=== PATIENT | male | born 1990 | race African-American/Black ===

== ENCOUNTER 2017-07-08 09:04 | Emergency (ER) | payer OTHER ==
[2017-07-08] MEDS ORDERED: Belladonna-Phenobarbital PO STA (09:46)
[2017-07-08] MEDS ORDERED: Belladonna-Phenobarbital ONE (09:53)
--- NOTE | 2017-07-08 10:12 | RAD ---
Abdomen two views History: Abdominal pain. Comparison: None available. Findings: Moderate fecal retention in the colon. Air seen within non distended loops of small bowel. Impression: Moderate fecal retention in the colon.
--- NOTE | 2017-07-08 10:21 | C.PDOC ---
History Of Present Illness 27 year old male, with no significant PMHx, presents to the ED for evaluation of abdominal pain which began around 5 days ago. Patient states pain is to his mid-right to left abdominal region, following the outline of his colon. Patient states the pain is cramping, intermittent and 6-8/10 in severity. He notes experiencing similar pain when he was a child, but had not experienced it in years. He also reports liquid stools. Patient denies fever, chills, nausea, vomiting, straining, or blood in stool. Time Seen by Provider: 07/08/17 09:15 Chief Complaint (Nursing): Abdominal Pain History Per: Patient History/Exam Limitations: no limitations Onset/Duration Of Symptoms: Days (5), Intermittent Episodes Current Symptoms Are (Timing): Still Present Pain Scale Rating Of: 6 Location Of Pain/Discomfort: Other (mid-right to left abdomen ) Associated Symptoms: Other (liquid stools ). denies: Fever, Chills, Nausea, Vomiting Additional History Per: Patient Past Medical History Reviewed: Historical Data, Nursing Documentation, Vital Signs Vital Signs: Last Vital Signs Temp 98.7 F 07/08/17 10:28 Pulse 70 07/08/17 10:28 Resp 18 07/08/17 10:28 BP 124/75 07/08/17 10:28 Pulse Ox 99 07/08/17 11:56 - Medical History PMH: No Chronic Diseases Surgical History: No Surg Hx Family History: States: Unknown Family Hx - Social History Hx Tobacco Use: No Hx Alcohol Use: No Hx Substance Use: No - Immunization History Hx Tetanus Toxoid Vaccination: No Hx Influenza Vaccination: No Hx Pneumococcal Vaccination: No Review Of Systems Constitutional: Negative for: Fever, Chills Gastrointestinal: Positive for: Abdominal Pain. Negative for: Nausea, Vomiting , Hematochezia Physical Exam - Physical Exam Appears: Non-toxic, No Acute Distress Skin: Normal Color, Warm, Dry Head: Atraumatic, Normacephalic Eye(s): bilateral: Normal Inspection Oral Mucosa: Moist Neck: Supple Chest: Symmetrical, No Deformity, No Tenderness Cardiovascular: Rhythm Regular, No Murmur Respiratory: Normal Breath Sounds, No Rales, No Rhonchi, No Wheezing Gastrointestinal/Abdominal: Soft, Tenderness (minor, along abdominal outline ), No Guarding, No Rebound, Other (patient is able to jump with no peritoneal signs ) Extremity: Normal ROM, Capillary Refill (less than 2 seconds ) Neurological/Psych: Oriented x3, Normal Speech, Normal Cognition ED Course And Treatment O2 Sat by Pulse Oximetry: 99 (on RA) Pulse Ox Interpretation: Normal - Other Rad Abdomen XR X-Ray: Interpreted by Me, Viewed By Me, Read By Radiologist Interpretation: Abdomen two views. History: Abdominal pain. Comparison: None available. Findings: Moderate fecal retention in the colon. Air seen within non distended loops of small bowel. Impression: Moderate fecal retention in the colon. Medical Decision Making Medical Decision Making: Progress: Abdomen Flat Plate ordered. Results show moderate fecal retention in colon. PO administered. On reassessment, patient is resting comfortably, showing no signs of distress and reports an improvement in his abdominal pain. Patient is educated on proper diet and about overflow diarrhea. Patient is stable for discharge with Rx and is advised to f/u with his PMD within 1-2 days for further evaluation. Advised to return to the ED if symptoms persist or worsen. Disposition Counseled Patient/Family Regarding: Diagnosis, Need For Followup, Rx Given - Disposition Referrals: [facility] at [facility] [Outside] Disposition: HOME/ ROUTINE Disposition Time: 10:19 Condition: STABLE Prescriptions: Phosphate Enema [Fleet Enema 135 Ml] 135 ml RC DAILY #1 nma Psyllium Husk/Aspartame [Metamucil Fiber Singles Packet] 3.4 gm PO DAILY #30 powd.pack Instructions: Constipation in Adults Forms: General Discharge Instructions, [facility] (Thai), Work Excuse - POA Present On Arrival: None - Clinical Impression Clinical Impression: Constipation - Scribe Statement The provider has reviewed the documentation as recorded by the Scribe (Melina Bethea) Provider Attestation: All medical record entries made by the Scribe were at my direction and personally dictated by me. I have reviewed the chart and agree that the record accurately reflects my personal performance of the history, physical exam, medical decision making, and the department course for this patient. I have also personally directed, reviewed, and agree with the discharge instructions and disposition.
[2017-07-08 12:37] VITALS: BP 124/75; PULSE 70; RESP 18; TEMP 98.7; O2SAT 99
== END 2017-07-08 10:32 | disposition home or self-care (01) ==
LOC: C.ER 09:04
DX: K59.00 Constipation, unspecified (principal)

== ENCOUNTER 2017-07-22 09:12 | Emergency (ER) | payer OTHER ==
[2017-07-22] MEDS ORDERED: DiphenhydrAMINE 50 mg/ml Inj ONE (10:27)
[2017-07-22] MEDS ORDERED: DiphenhydrAMINE 50 mg/ml Inj IVP STA (10:27)
--- NOTE | 2017-07-22 10:30 | C.PDOC ---
History Of Present Illness 27 y/o male with history of Vertigo presents to ED with complaints of dizziness associated with nausea and vomiting since yesterday. Patient states he describes the symptoms as the room spinning and worsened with head movement. Today patient woke up today tried to eat something and vomited, currently states he is unable to tolerate po intake. Patient denies numbness, weakness, headache, vision changes, chest pain, SOB, travel, abdominal pain or any other complaints at this time. Time Seen by Provider: 07/22/17 09:27 Chief Complaint (Nursing): Dizziness/Lightheaded History Per: Patient History/Exam Limitations: no limitations Onset/Duration Of Symptoms: Days Current Symptoms Are (Timing): Still Present Past Medical History Reviewed: Historical Data, Nursing Documentation, Vital Signs Vital Signs: Last Vital Signs Temp 97.9 F 07/22/17 12:18 Pulse 61 07/22/17 12:18 Resp 18 07/22/17 12:18 BP 110/61 07/22/17 12:18 Pulse Ox 99 07/22/17 12:18 - Medical History PMH: No Chronic Diseases Surgical History: No Surg Hx Family History: States: No Known Family Hx - Social History Hx Tobacco Use: No Hx Alcohol Use: No Hx Substance Use: No - Immunization History Hx Tetanus Toxoid Vaccination: No Hx Influenza Vaccination: No Hx Pneumococcal Vaccination: No Review Of Systems Except As Marked, All Systems Reviewed And Found Negative. Constitutional: Negative for: Fever, Chills Gastrointestinal: Positive for: Nausea, Vomiting. Negative for: Abdominal Pain Neurological: Positive for: Dizziness. Negative for: Weakness, Numbness, Headache Physical Exam - Physical Exam Appears: Non-toxic, No Acute Distress Skin: Warm, Dry, No Rash Head: Atraumatic, Normacephalic Eye(s): bilateral: Normal Inspection (No nystagmus ), PERRL, EOMI Oral Mucosa: Moist Neck: Normal ROM, Supple Cardiovascular: Rhythm Regular, No Friction Rub, No Murmur Respiratory: Normal Breath Sounds, No Rales, No Rhonchi, No Wheezing Gastrointestinal/Abdominal: Soft, No Tenderness, No Guarding, No Rebound Extremity: Normal ROM, Capillary Refill (<2 seconds) Neurological/Psych: Oriented x3, Normal Speech, Normal Cognition, Normal Cranial Nerves, Normal Motor, Normal Sensation Gait: Steady ED Course And Treatment - Laboratory Results Result Diagrams: 07/22/17 10:24 07/22/17 10:24 O2 Sat by Pulse Oximetry: 100 (RA) Pulse Ox Interpretation: Normal Medical Decision Making Medical Decision Making: Plan: UA, Blood work ordered. Reglan and Benadryl administered Old records reviewed: seen at ED on 07/08 for abdominal pain and diagnosed with constipation d/c with Enema. On re-exam, the patient reports improvement of symptoms. Abdomen is soft, non-tender and the patient is tolerating PO well. Lungs are CTA, heart is RRR. The patient is ambulatory in the ED with steady gait. Disposition - Disposition Referrals: [facility] at [facility] [Outside] Disposition: HOME/ ROUTINE Disposition Time: 12:02 Condition: GOOD Additional Instructions: Follow up with medical doctor within 1-2 days. Return if worsened. Prescriptions: Meclizine HCl 25 mg PO TID PRN #21 tablet PRN Reason: Dizziness Instructions: Vertigo (a Type of Dizziness) (DC) Forms: [employer] (Spanish) - Clinical Impression Clinical Impression: Positional vertigo - PA / A/C TECH / Resident Statement MD/DO has reviewed & agrees with the documentation as recorded. - Scribe Statement The provider has reviewed the documentation as recorded by the Scribe Filemon Swanson All medical record entries made by the Donaldibjudith were at my direction and personally dictated by me. I have reviewed the chart and agree that the record accurately reflects my personal performance of the history, physical exam, medical decision making, and the department course for this patient. I have also personally directed, reviewed, and agree with the discharge instructions and disposition.
[2017-07-22 10:39] LABS: BASO # 0.1 K/uL (0.0-0.2); BASO % 0.5 % (0.0-2.0); EOS % 0.1 % (0.0-4.0); HEMOGLOBIN 15.3 g/dL (12.0-18.0); LYMPH # 1.3 K/uL (1.0-4.3); LYMPH % 13.5 % (20.0-40.0); MEAN CELL VOLUME 86.6 fL (80.0-94.0); MEAN CORPUSCULAR HEMOGLOBIN 30.1 pg (27.0-31.0); MEAN CORPUSCULAR HGB CONC 34.7 g/dL (33.0-37.0); MEAN PLATELET VOLUME 9.1 fL (7.2-11.7); MONO # 0.4 K/uL (0.0-0.8); MONO % 4.2 % (0.0-10.0); NEUT # 7.8 K/uL (1.8-7.0); NEUT % 81.7 % (50.0-75.0); NRBC % 0.1 % (0.0-2.0); RBC 5.1 Mil/uL (4.40-5.90); RED CELL DISTRIBUTION WIDTH 12.9 % (11.5-14.5); WHITE BLOOD COUNT 9.6 K/uL (4.8-10.8)
[2017-07-22 10:58] LABS: ALB/GLOB RATIO 1.5 (1.0-2.1); ALBUMIN 4.6 g/dL (3.5-5.0); ALT/SGPT 14 U/L (21-72); AST/SGOT 35 U/L (17-59); BLOOD UREA NITROGEN 16 mg/dL (9-20); CALCIUM 9.2 mg/dl (8.6-10.4); GFR AFRICAN-AMERICAN > 60; GFR NON-AFRICAN AMERICAN > 60
[2017-07-22 11:39] LABS: URINE AMORPHOUS SEDIMENT MODERATE /ul (<OCC); URINE BILIRUBIN NEGATIVE (NEGATIVE); URINE BLOOD NEGATIVE (NEGATIVE); URINE CLARITY Hazy (Clear); URINE COLOR Yellow (YELLOW); URINE GLUCOSE (UA) NORMAL (Normal); URINE LEUKOCYTE ESTERASE NEG Leu/uL (Negative); URINE PROTEIN NEGATIVE (NEGATIVE); URINE UROBILINOGEN NORMAL mg/dL (0.2-1.0)
[2017-07-22 12:19] VITALS: BP 110/61; PULSE 61; RESP 18; TEMP 97.9
[2017-07-26 19:35] VITALS: O2SAT 100
== END 2017-07-22 12:22 | disposition home or self-care (01) ==
LOC: C.ER 09:12
DX: H81.10 Benign paroxysmal vertigo, unspecified ear (principal)
CPT/HCPCS: 80053; 81001; 82948; 85025; 96374; 99285; J1200; J2765